=== PATIENT | female | born 1995 | race African-American/Black ===

== ENCOUNTER 2020-01-24 05:06 | Inpatient (IN) ==
[2020-01-24] MEDS ORDERED: BUTORPHANOL 2 MG/ML VIAL IV PRN (05:22)
[2020-01-24] MEDS ORDERED: ONDANSETRON 4 MG/2 ML VIAL IV PRN ×2 (05:22→20:37)
[2020-01-24] MEDS ORDERED: LACTATED RINGERS 250 ML IV ONE (05:22)
[2020-01-24] MEDS ORDERED: BUTORPHANOL 1 MG/ML VIAL IV PRN (05:22)
[2020-01-24] MEDS ORDERED: LACTATED RINGERS 500 ML IV PRN (05:22)
[2020-01-24] MEDS ORDERED: OXYTOCIN/LR 20 UNIT/1,000 ML BAG IV SCH (05:30)
[2020-01-24 05:44] LABS: Basophils # 0.1 10*3/uL (0.0-0.2); Basophils % 0.5 % (0.0-0.8); Eosinophils # 0.1 10*3/uL (0.0-0.87); Eosinophils % 1.2 % (0.00-10.9); Hematocrit 33.8 VOL% (35.7-47.0); Hemoglobin 11.1 GM/DL (12.0-16.0); Immature Granulocytes % 0.7 %; Immature Granulocytes Absolute 0.07 #; Lymphocytes # 1.8 10*3/uL (1.4-4.0); Lymphocytes % 17.1 % (21.3-54.2); Mean Corpuscular HGB Conc 32.8 GM/DL (32-36); Mean Platelet Volume 11.5 FL (9.6-12.0); Neutrophils % 72.5 % (38.7-73.9); Platelet Count 189 T/CUMM (130-400); Red Blood Count 3.93 MC/CUMM (3.8-5.5); Red Cell Distribution Width 13.8 % (9.3-17.3); White Blood Count 10.5 T/CUMM (4-12)
[2020-01-24] MEDS: LACTATED RINGERS 1,000 ML IV SCH ×3 (05:52→18:33)
[2020-01-24] MEDS ORDERED: PROMETHAZINE 25 MG/1 ML VIAL IM ONE (07:43)
[2020-01-24] MEDS ORDERED: NALOXONE 0.4 MG/ML VIAL IV PRN (07:43)
[2020-01-24] MEDS ORDERED: FAMOTIDINE 20 MG/2 ML VIAL IV ONE ×2 (07:43→19:24)
[2020-01-24] MEDS ORDERED: diphenhydrAMINE 50 MG/1 ML VIAL IV PRN ×2 (07:43)
[2020-01-24] MEDS ORDERED: CITRIC ACID/SODIUM CITRATE 30 ML UDCUP PO ONE (07:43)
[2020-01-24] MEDS ORDERED: hydrOXYzine HCL 25 MG/1 ML VIAL IM PRN (07:43)
[2020-01-24] MEDS ORDERED: ONDANSETRON 4 MG/2 ML VIAL IV ONE (07:43)
[2020-01-24] MEDS: fentaNYL 2 MCG/ROPIV 0.2% EPID 100 ML EPIDURAL SCH ×2 (10:01→18:31)
[2020-01-24 11:45] LABS: Apearance,Urine CLEAR (Clear); Bilirubin,Urine Negative (Negative); Blood, Urine Small mg/dL (Negative); Glucose,Urine (UA) Negative (Negative); Ketones,Urine Negative (Negative); Mucus,Urine Occasional /LPF (Occasional); Nitrite,Urine Negative (Negative); Protein,Urine Negative; RBC,Urine 20 /HPF (0-4); Squamous Epithelial Cell,Urine Occasional /HPF (0-10); Urine Color Yellow (Yellow); Urine Specific Gravity 1.011 (1.001-1.035); Urine Urobilinogen < 2.0 EU/DL (0.2-1.0); WBC,Urine 2 /HPF (0-6)
[2020-01-24] MEDS: ePHEDrine 50 MG/ML AMP IV PRN ×2 (12:00→12:10)
[2020-01-24] MEDS ORDERED: ceFAZolin 2,000 MG in PREMIX 1 EACH IV ONE (19:12)
[2020-01-24] MEDS ORDERED: OXYTOCIN 10 UNIT/ML VIAL IM ONE (19:14)
[2020-01-24] MEDS ORDERED: OXYTOCIN/LR 30 UNIT/1,000 ML BAG IV ONE (19:14)
[2020-01-24] MEDS ORDERED: miSOPROStoL 200 MCG TABLET ONE (19:18)
[2020-01-24] MEDS ORDERED: METHYLERGONOVINE 0.2 MG/1 ML AMP ONE (19:18)
[2020-01-24] MEDS ORDERED: TRANEXAMIC ACID 1,000 MG/10 ML VIAL ONE (19:18)
[2020-01-24] MEDS ORDERED: CARBOPROST TROMETHAMINE 250 MCG/ML AMP IM ONE (19:19)
[2020-01-24 20:33] LABS: Cord Venous Blood HCO3 19.9 MMOL/L; Cord Venous Blood PCO2 40.4 MMHG; Cord Venous Blood PO2 25.8
[2020-01-24] MEDS ORDERED: MAGNESIUM HYDROXIDE SUSP 30 ML UDCUP PO PRN (20:37)
[2020-01-24] MEDS ORDERED: SIMETHICONE CHEW 80 MG TABLET PO PRN (20:37)
[2020-01-24] MEDS ORDERED: ACETAMINOPHEN 325 MG TABLET PO PRN (20:37)
[2020-01-24] MEDS ORDERED: RHO(D) IMMUNE GLOBULIN 300 MCG SYRINGE IM ONE (20:37)
[2020-01-24] MEDS ORDERED: OXYTOCIN/LR 20 UNIT/1,000 ML BAG IV ONE (20:37)
[2020-01-24] MEDS ORDERED: MORPHINE 10 MG/10 ML VIAL ONE (20:47)
[2020-01-24] MEDS ORDERED: MIDAZOLAM 2 MG/2 ML VIAL ONE (20:47)
[2020-01-24] MEDS ORDERED: LIDOCAINE MPF 2% /EPI 20 ML VIAL ONE (20:47)
[2020-01-24] MEDS ORDERED: LACTATED RINGERS 1,000 ML IV SCH (21:00)
[2020-01-24] MEDS ORDERED: CITRIC ACID/SODIUM CITRATE 30 ML UDCUP PO SCH (21:00)
[2020-01-24] MEDS: IBUPROFEN 800 MG TABLET PO PRN (22:26)
[2020-01-25] MEDS: DOCUSATE SODIUM 100 MG CAPSULE PO SCH ×3 (01:35→20:36)
[2020-01-25] MEDS: ceFAZolin 1,000 MG in SYRINGE 1 EACH IV SCH ×2 (04:31→12:24)
[2020-01-25 04:46] LABS: Basophils % 0.3 % (0.0-0.8); Eosinophils % 0.2 % (0.00-10.9); Hemoglobin 10.3 GM/DL (12.0-16.0); Immature Granulocytes % 0.5 %; Immature Granulocytes Absolute 0.07 #; Lymphocytes # 1.3 10*3/uL (1.4-4.0); Lymphocytes % 8.2 % (21.3-54.2); Mean Corpuscular HGB Conc 32.2 GM/DL (32-36); Mean Corpuscular Volume 86.5 FL (87-102); Mean Platelet Volume 11.8 FL (9.6-12.0); Monocytes % 6.5 % (1.7-12.7); Neutrophils % 84.3 % (38.7-73.9); Platelet Count 174 T/CUMM (130-400); Red Cell Distribution Width 14.1 % (9.3-17.3); White Blood Count 15.3 T/CUMM (4-12)
[2020-01-25] MEDS ORDERED: METOCLOPRAMIDE 10 MG/10 ML UDCUP PO SCH (08:00)
[2020-01-25] MEDS: MULTIVITAMIN (PRENATAL) TABLET PO SCH (09:25)
[2020-01-25] MEDS: METOCLOPRAMIDE 10 MG TABLET PO SCH ×3 (09:25→23:22)
[2020-01-25 12:28] LABS: Basophils % 0.2 % (0.0-0.8); Eosinophils # 0.1 10*3/uL (0.0-0.87); Eosinophils % 0.4 % (0.00-10.9); Hematocrit 34.9 VOL% (35.7-47.0); Hemoglobin 10.9 GM/DL (12.0-16.0); Immature Granulocytes % 0.6 %; Immature Granulocytes Absolute 0.09 #; Lymphocytes # 1.2 10*3/uL (1.4-4.0); Lymphocytes % 7.3 % (21.3-54.2); Mean Corpuscular HGB Conc 31.2 GM/DL (32-36); Mean Corpuscular Volume 88.6 FL (87-102); Mean Platelet Volume 11.8 FL (9.6-12.0); Monocytes % 6.4 % (1.7-12.7); Neutrophils % 85.1 % (38.7-73.9); Platelet Count 195 T/CUMM (130-400); Red Blood Count 3.94 MC/CUMM (3.8-5.5); Red Cell Distribution Width 14.1 % (9.3-17.3); White Blood Count 16.1 T/CUMM (4-12)
[2020-01-25] MEDS ORDERED: RHO(D) IMMUNE GLOBULIN 300 MCG SYRINGE IM ONE (18:30)
[2020-01-25] MEDS: IBUPROFEN 800 MG TABLET PO PRN (21:06)
[2020-01-25 23:25] LABS: Apearance,Urine CLEAR (Clear); Bilirubin,Urine Negative (Negative); Blood, Urine Small mg/dL (Negative); Glucose,Urine (UA) Negative (Negative); Ketones,Urine Negative (Negative); Mucus,Urine Occasional /LPF (Occasional); Nitrite,Urine Negative (Negative); Protein,Urine Negative; RBC,Urine 3 /HPF (0-4); Urine Color Yellow (Yellow); Urine Specific Gravity 1.006 (1.001-1.035); Urine Urobilinogen < 2.0 EU/DL (0.2-1.0); WBC,Urine 3 /HPF (0-6)
[2020-01-26] MEDS: METOCLOPRAMIDE 10 MG TABLET PO SCH (08:28)
[2020-01-26] MEDS: DOCUSATE SODIUM 100 MG CAPSULE PO SCH (08:28)
[2020-01-26] MEDS: MULTIVITAMIN (PRENATAL) TABLET PO SCH (08:28)
[2020-01-26 09:27] VITALS: BP 120/76
[2020-01-26] MEDS ORDERED: DIPH/TET/ACEL PERT BOOSTER VACCINE 0.5 ML VIAL IM ONE (12:19)
== END 2020-01-26 13:15 | disposition home or self-care (01) | DRG 540 ==
LOC: N.LD 05:06 → N.OB 01-25 00:03
PROVIDERS: ADMIT Obstetrics & Gynecology; ATTEND Obstetrics & Gynecology
PROC: LDCSECT (ICD-10-PCS; 2020-01-25 19:45)

== ENCOUNTER 2021-12-23 00:12 | Inpatient (IN) ==
[2021-12-23] MEDS ORDERED: ceFAZolin 2,000 MG/50 ML DUPLEX IV PRN (00:48)
[2021-12-23] MEDS ORDERED: CITRIC ACID/SODIUM CITRATE 30 ML UDCUP PO PRN (00:48)
[2021-12-23] MEDS ORDERED: FAMOTIDINE 20 MG/2 ML VIAL IV PRN (00:48)
[2021-12-23] MEDS ORDERED: LACTATED RINGERS 1,000 ML IV PRN ×2 (00:48→02:24)
[2021-12-23] MEDS ORDERED: OXYTOCIN/LR 30 UNIT/1,000 ML BAG IV PRN (00:56)
[2021-12-23] MEDS ORDERED: OXYTOCIN 10 UNIT/ML VIAL IM PRN (00:57)
[2021-12-23 01:26] LABS: Basophils % 0.5 % (0.0-0.8); Eosinophils # 0.1 10*3/uL (0.0-0.87); Eosinophils % 1.3 % (0.00-10.9); Hematocrit 33.3 VOL% (35.7-47.0); Hemoglobin 10.6 GM/DL (12.0-16.0); Immature Granulocytes % 0.5 %; Immature Granulocytes Absolute 0.04 #; Lymphocytes % 22.8 % (21.3-54.2); Mean Corpuscular HGB Conc 31.8 GM/DL (32-36); Mean Corpuscular Volume 90.7 FL (87-102); Mean Platelet Volume 11.6 FL (9.6-12.0); Monocytes % 6.6 % (1.7-12.7); Neutrophils % 68.3 % (38.7-73.9); Platelet Count 178 T/CUMM (130-400); Red Blood Count 3.67 MC/CUMM (3.8-5.5); Red Cell Distribution Width 13.7 % (9.3-17.3); White Blood Count 8.6 T/CUMM (4-12)
[2021-12-23 01:48] LABS: Albumin 2.5 G/DL (3.4-5.0); Bilirubin,Total 0.7 MG/DL (0.20-1.00); Calcium 8.4 MG/DL (8.5-10.1); Osmolality,Calculated 270.7 MOS/KG (273-304); Potassium 3.6 MMOL/L (3.5-5.1); Total Protein 6.4 G/DL (6.4-8.2)
[2021-12-23] MEDS ORDERED: diphenhydrAMINE 50 MG/1 ML VIAL IV PRN ×2 (02:22)
[2021-12-23] MEDS ORDERED: hydrOXYzine HCL 25 MG/1 ML VIAL IM PRN (02:22)
[2021-12-23] MEDS ORDERED: PROMETHAZINE 25 MG/1 ML VIAL IM PRN (02:22)
[2021-12-23] MEDS ORDERED: ePHEDrine 50 MG/ML VIAL IV PRN (02:22)
[2021-12-23] MEDS ORDERED: PHENYLEPHRINE 1 MG/10 ML SYRINGE IV ONE (07:51)
[2021-12-23] MEDS ORDERED: BUPIVACAINE SPINAL 0.75% 2 ML AMP SPINAL ONE (07:51)
[2021-12-23] MEDS ORDERED: SODIUM CHLORIDE 0.9% 0 ML IV ONE (08:02)
[2021-12-23] MEDS ORDERED: TRANEXAMIC ACID 1,000 MG/10 ML VIAL ONE (08:02)
[2021-12-23] MEDS ORDERED: miSOPROStoL 200 MCG TABLET ONE (08:02)
[2021-12-23] MEDS ORDERED: OXYTOCIN/LR 20 UNIT/1,000 ML BAG IV ONE ×2 (08:02→12:24)
[2021-12-23] MEDS ORDERED: CARBOPROST TROMETHAMINE 250 MCG/ML AMP IM ONE (08:03)
[2021-12-23] MEDS ORDERED: METHYLERGONOVINE 0.2 MG/1 ML AMP ONE (08:03)
[2021-12-23] MEDS ORDERED: ACETAMINOPHEN INJ 1,000 MG/100 ML VIAL IV ONE (09:11)
[2021-12-23] MEDS ORDERED: KETOROLAC 30 MG/1 ML VIAL ONE (09:11)
[2021-12-23] MEDS ORDERED: MIDAZOLAM 2 MG/2 ML VIAL ONE (09:23)
[2021-12-23 09:29] LABS: Cord Arterial Blood HCO3 21.7 MMOL/L
[2021-12-23 09:31] LABS: Cord Venous Blood PCO2 38.8 MMHG; Cord Venous Blood PO2 33.3 MMHG
[2021-12-23 09:33] LABS: Mucus,Urine Occasional /LPF (Occasional); RBC,Urine 4 /HPF (0-4); Squamous Epithelial Cell,Urine Occasional /HPF (0-10)
[2021-12-23 09:34] LABS: Urine Appearance Clear (Clear); Urine Color Yellow (Yellow); Urine pH 7.5 (4.5-8.0)
[2021-12-23 09:35] LABS: Bilirubin,Urine Negative (Negative); Blood, Urine Negative (Negative); Glucose,Urine (UA) Negative (Negative); Ketones,Urine 80 mg/dL (Negative); Nitrite,Urine Negative (Negative); Protein,Urine 30 MG/DL; Urine Urobilinogen 0.2 EU/DL (<2.0)
[2021-12-23] MEDS ORDERED: ACETAMINOPHEN 325 MG TABLET PO PRN (12:24)
[2021-12-23] MEDS ORDERED: RHO(D) IMMUNE GLOBULIN 300 MCG SYRINGE IM ONE (12:24)
[2021-12-23] MEDS: ACETAMINOPHEN 500 MG TABLET PO SCH ×2 (16:20→22:17)
[2021-12-23] MEDS: KETOROLAC 30 MG/1 ML VIAL IV SCH ×2 (16:20→22:16)
[2021-12-23 19:41] LABS: Basophils # 0.1 10*3/uL (0.0-0.2); Basophils % 0.6 % (0.0-0.8); Eosinophils # 0.1 10*3/uL (0.0-0.87); Eosinophils % 0.7 % (0.00-10.9); Hemoglobin 10.9 GM/DL (12.0-16.0); Immature Granulocytes % 0.3 %; Immature Granulocytes Absolute 0.03 #; Lymphocytes # 1.7 10*3/uL (1.4-4.0); Lymphocytes % 16.8 % (21.3-54.2); Mean Corpuscular HGB Conc 32.1 GM/DL (32-36); Mean Corpuscular Volume 90.2 FL (87-102); Mean Platelet Volume 11.5 FL (9.6-12.0); Monocytes % 5.6 % (1.7-12.7); Platelet Count 157 T/CUMM (130-400); Red Blood Count 3.77 MC/CUMM (3.8-5.5); Red Cell Distribution Width 13.6 % (9.3-17.3)
[2021-12-23] MEDS: DOCUSATE SODIUM 100 MG CAPSULE PO SCH (22:09)
[2021-12-24] MEDS: KETOROLAC 30 MG/1 ML VIAL IV SCH (03:38)
[2021-12-24] MEDS: ACETAMINOPHEN 500 MG TABLET PO SCH (03:39)
[2021-12-24 05:33] LABS: Basophils # 0.1 10*3/uL (0.0-0.2); Basophils % 0.8 % (0.0-0.8); Eosinophils # 0.1 10*3/uL (0.0-0.87); Eosinophils % 1.5 % (0.00-10.9); Hematocrit 30.5 VOL% (35.7-47.0); Hemoglobin 9.6 GM/DL (12.0-16.0); Immature Granulocytes % 0.4 %; Immature Granulocytes Absolute 0.03 #; Lymphocytes # 1.8 10*3/uL (1.4-4.0); Lymphocytes % 23.1 % (21.3-54.2); Mean Corpuscular HGB Conc 31.5 GM/DL (32-36); Mean Platelet Volume 11.8 FL (9.6-12.0); Monocytes % 7.9 % (1.7-12.7); Neutrophils % 66.3 % (38.7-73.9); Platelet Count 159 T/CUMM (130-400); Red Blood Count 3.35 MC/CUMM (3.8-5.5); Red Cell Distribution Width 13.6 % (9.3-17.3); White Blood Count 7.9 T/CUMM (4-12)
[2021-12-24] MEDS: MULTIVITAMIN (PRENATAL) TABLET PO SCH (10:01)
[2021-12-24] MEDS: SIMETHICONE CHEW 80 MG TABLET PO PRN (10:01)
[2021-12-24] MEDS: MAGNESIUM HYDROXIDE SUSP 30 ML UDCUP PO PRN (10:01)
[2021-12-24] MEDS: FERROUS SULFATE 325 MG TABLET PO SCH ×2 (10:01→19:18)
[2021-12-24] MEDS: DOCUSATE SODIUM 100 MG CAPSULE PO SCH ×2 (10:02→19:18)
[2021-12-24] MEDS: METOCLOPRAMIDE 10 MG TABLET PO SCH ×2 (10:02→18:31)
[2021-12-24] MEDS: IBUPROFEN 800 MG TABLET PO PRN (14:59)
[2021-12-24] MEDS ORDERED: RHO(D) IMMUNE GLOBULIN 300 MCG SYRINGE IM ONE (17:45)
[2021-12-25] MEDS: METOCLOPRAMIDE 10 MG TABLET PO SCH ×2 (02:02→08:01)
[2021-12-25] MEDS: IBUPROFEN 800 MG TABLET PO PRN ×2 (02:26→09:06)
[2021-12-25] MEDS: MAGNESIUM HYDROXIDE SUSP 30 ML UDCUP PO PRN (08:01)
[2021-12-25] MEDS: FERROUS SULFATE 325 MG TABLET PO SCH (08:01)
[2021-12-25] MEDS: DOCUSATE SODIUM 100 MG CAPSULE PO SCH (08:01)
[2021-12-25] MEDS: MULTIVITAMIN (PRENATAL) TABLET PO SCH (08:01)
[2021-12-25] MEDS: SIMETHICONE CHEW 80 MG TABLET PO PRN (09:05)
[2021-12-25 16:04] VITALS: BP 112/74
== END 2021-12-25 12:10 | disposition home or self-care (01) | DRG 540 ==
LOC: N.LD 00:12 → N.OB 13:01
PROVIDERS: ADMIT Obstetrics & Gynecology; ATTEND Obstetrics & Gynecology
PROC: LDCSECT (ICD-10-PCS; 2021-12-23 07:30)